=== PATIENT | female | born 1985 | race American Indian/Alaskan Native ===

== ENCOUNTER 2016-12-24 02:19 | Emergency (ER) | payer OTHER ==
[2016-12-24 03:02] LABS: Basophils % (Auto) 0.3 % (0.0-1.8); Hematocrit 29.7 % (30.3-42.9); Hemoglobin 9.5 gm/dl (10.1-14.3); Mean Corpuscular HGB Conc 32 % (30-34); Mean Corpuscular Volume 69 fl (79-97); Platelet Count 301 K/mm3 (140-440); Red Blood Count 4.33 M/mm3 (3.65-5.03); Red Cell Distribution Width 18.9 % (13.2-15.2); White Blood Count 10.4 K/mm3 (4.5-11.0)
[2016-12-24 03:03] LABS: Mean Corpuscular Hemoglobin 22 pg (28-32)
[2016-12-24] MEDS ORDERED: NACL 0.9% 1000 ML 1,000 ML IV ONE (03:05)
[2016-12-24] MEDS ORDERED: ZOFRAN IV ONE (03:05)
[2016-12-24] MEDS ORDERED: DILAUDID IV ONE (03:05)
[2016-12-24] MEDS ORDERED: PEPCID IV ONE (03:06)
--- NOTE | 2016-12-24 03:13 | Emergency Department Report ---
HPI - General Chief Complaint: Abdominal Pain Time Seen by Provider: 12/24/16 03:05 - HPI HPI: 31-year-old [place] female coming in is for gastric pain starting 1 hour prior to ER presentation. Patient states she had wisdom tooth removal earlier today and is currently taking [place] and an antibiotic. She states that her pain is accompanied by nausea, vomiting but no urinary symptoms or diarrhea. Patient took one [place] without relief. She denies any exacerbating factors. She denies any alleviating factors. She denies any recent travel, or unusual foods. She denies any sick contacts. MD Complaint: abdominal pain -: Gradual Location: Epigastric Radiation: none Migration to: no migration Severity scale (0 -10): 10 Quality: sharp Improves With: nothing Associated Symptoms: nausea, vomiting, chills ED Past Medical Hx - Past Medical History Previous Medical History?: No - Surgical History Past Surgical History?: No - Social History Smoking Status: Never Smoker Substance Use Type: None - Medications Home Medications: Home Medications Medication Instructions Recorded Confirmed Last Taken Type Omeprazole 40 mg PO DAILY #30 capsule. 12/24/16 Unknown Rx ED Review of Systems ROS: Stated complaint: ABDOMINAL PAIN Other details as noted in HPI Comment: All other systems reviewed and negative Endocrine: no symptoms reported Gastrointestinal: abdominal pain, nausea, vomiting Genitourinary: denies: urgency, dysuria, discharge Musculoskeletal: denies: back pain, joint swelling, arthralgia Physical Exam - Physical Exam Vital Signs: Vital Signs 12/24/16 02:34 Temperature 98.5 F Pulse Rate 109 H Respiratory 22 Rate Blood Pressure 144/88 O2 Sat by Pulse 100 Oximetry Physical Exam: Physical Exam: - General Limitations: No Limitations General appearance: alert, in no apparent distress. - Head Head exam: Present: atraumatic, normocephalic - Eye Eye exam: Present: normal appearance - ENT ENT exam: Present: mucous membranes moist - Neck Neck exam: Present: normal inspection - Respiratory Respiratory exam: Present: normal lung sounds bilaterally. Absent: respiratory distress - Cardiovascular Cardiovascular Exam: Present: normal rhythm, normal rate. Absent: systolic murmur, diastolic murmur, rubs, gallop - GI/Abdominal GI/Abdominal exam: Epigastric tenderness, no rebound. - Extremities Exam Extremities exam: Present: normal inspection - Back Exam Back exam: Present: normal inspection - Neurological Exam Neurological exam: Present: alert, oriented X3 - Psychiatric Psychiatric exam: normal affect and mood - Skin Skin exam: Present: warm, dry, intact, normal color. Absent: rash ED Course Vital Signs 12/24/16 02:34 Temperature 98.5 F Pulse Rate 109 H Respiratory 22 Rate Blood Pressure 144/88 O2 Sat by Pulse 100 Oximetry ED Medical Decision Making - Lab Data Result diagrams: 12/24/16 02:50 Critical care attestation.: If time is entered above; I have spent that time in minutes in the direct care of this critically ill patient, excluding procedure time. ED Disposition Clinical Impression: Abdominal pain Qualifiers: Abdominal location: generalized Qualified Code(s): R10.84 - Generalized abdominal pain Disposition: DC-01 TO HOME OR SELFCARE Is pt being admited?: No Does the pt Need Aspirin: No Condition: Stable Instructions: Abdominal Pain (ED) Prescriptions: Omeprazole 40 mg PO DAILY #30 capsule. Referrals: ELIDA CM MD [Primary Care Provider] - 3-5 Days
[2016-12-24 03:51] LABS: Bilirubin,Urine NEG (Negative); Blood,Urine NEG (Negative); Ketones,Urine NEG (Negative); Leukocyte Esterase,Urine NEG (Negative); Mucus,Urine FEW /HPF; Nitrite,Urine NEG (Negative); Protein,Urine <15 mg/dL mg/dL (Negative)
--- NOTE | 2016-12-24 05:57 | Cat Scan Report ---
FINAL REPORT EXAM: CT ABDOMEN PELVIS WO CON HISTORY: abd pain, severe epigastric pain TECHNIQUE: CT images obtained through the Abdomen and Pelvis without contrast. Transaxial,coronal and sagittal reformats are provided. PRIORS: None. FINDINGS: Imaged intrathoracic contents are unremarkable. Limited evaluation hollow enteric and solid abdominal organs without contrast administration. Kidneys are normal in size, axis and position. No hydronephrosis or nephrolithiasis. The ureters are normal in course and caliber. No stones are seen within the urinary bladder. The liver, gallbladder, pancreas, spleen, and adrenal glands demonstrate a normal noncontrast appearance. Hollow enteric organs are normal in course and caliber. The appendix appears fluid-filled and measures up to 6 millimeters in caliber. There is no definite periappendiceal fat stranding or edema. No intra-abdominal free air/fluid or lymphadenopathy. Aorta is normal in course and caliber. Anteverted uterus. Trace free fluid in the pelvis is likely physiologic. Superficial soft tissues are unremarkable. No acute or aggressive appearing skeletal findings. IMPRESSION: No acute intra-abdominal process. Note that evaluation of hollow enteric and solid abdominal viscera is limited without contrast. Consider additional imaging for worsening/persistent symptoms.
[2016-12-24 07:08] VITALS: BP 110/68
--- NOTE | 2016-12-24 07:35 | XRay Report ---
AP CHEST: HISTORY: chest pain AP view of the chest demonstrates a normal mediastinal and cardiac contour with clear lungs and normal bony and soft tissue structures. IMPRESSION: Unremarkable AP chest.
== END 2016-12-24 06:55 | disposition home or self-care (01) ==
LOC: ED 02:19
DX: R10.84 Generalized abdominal pain (principal)
CPT/HCPCS: 36415; 71010; 74176; 81001; 81025; 85025; 93005; 93010; 96361; 96374; 96375; 99284; J1170; J2405; J7030